=== PATIENT | male | born 2000 | race Caucasian/White ===

== ENCOUNTER → 2022-12-24 | Outpatient (CLI) | payer OTHER ==
[2022-12-24 12:21] LABS: HEMATOCRIT 48.3 % (42.0-52.0); MEAN CORPUSCULAR HEMOGLOBIN 29.2 pg (27.0-33.0); MEAN CORPUSCULAR HGB CONC 33.1 g/dl (32.0-36.5); MEAN CORPUSCULAR VOLUME 88.1 fl (80.0-96.0); PLATELET COUNT, AUTOMATED 157 10^3/uL (150-450); RED BLOOD COUNT 5.48 10^6/uL (4.30-6.10); WHITE BLOOD COUNT 11.3 10^3/uL (4.0-10.0)
[2022-12-24 12:38] LABS: LIPASE 35 U/L (12-53)
[2022-12-24 12:40] LABS: ALBUMIN 3.9 G/DL (3.2-5.2); ALKALINE PHOSPHATASE 68 U/L (46-116); ALT/SGPT 59 U/L (7.0-40); AST/SGOT 38 U/L (<34); BLOOD UREA NITROGEN 12 MG/DL (9-23); CALCIUM LEVEL 9.3 MG/DL (8.5-10.1); CARBON DIOXIDE LEVEL 27 MMOL/L (20-31); CHLORIDE LEVEL 106 MMOL/L (98-107); CREATININE FOR GFR 0.98 MG/DL (0.70-1.30); GLUCOSE, FASTING 85 MG/DL (60-100); POTASSIUM SERUM 4.6 MMOL/L (3.5-5.1); SODIUM LEVEL 142 MMOL/L (136-145); TOTAL PROTEIN 6.8 G/DL (5.7-8.2)
[2022-12-24 13:25] LABS: ATYPICAL LYMPH 16 % (0-5); LYMPHOCYTES 48 % (16-44); MONOCYTES 9 % (0-5); NEUTROPHILS 27 % (28-66); PLATELET ESTIMATE NORMAL (NORMAL)
== END ==
LOC: M WUC 09:23
PROVIDERS: ATTEND Student in an Organized Health Care Education/Training Program
DX: R10.84 Generalized abdominal pain (principal)

== ENCOUNTER → 2023-02-26 | Outpatient (CLI) | payer OTHER | LOC: M WUC 13:44 | PROVIDERS: ATTEND Physician Assistant | DX: M54.50 Low back pain, unspecified (principal) ==

== ENCOUNTER → 2023-06-13 | Outpatient (REF) | payer OTHER | LOC: M LAB REF 16:25 | PROVIDERS: ATTEND Student in an Organized Health Care Education/Training Program | DX: R30.0 Dysuria (principal) ==